=== PATIENT | male | born 1935 | race Caucasian/White ===

== ENCOUNTER → 2017-09-30 | Outpatient (CLI) | payer OTHER | LOC: M WUC 09:23 | DX: M25.511 Pain in right shoulder (principal) | CPT/HCPCS: 73030 ==

== ENCOUNTER → 2019-03-01 | Outpatient (CLI) | payer MEDICARE, OTHER ==
--- NOTE | 2019-03-01 10:16 | REP ---
LEFT HIP, TWO VIEWS: HISTORY: Pain. There is no acute fracture or dislocation. There is moderate narrowing of the joint space with associated sclerosis. IMPRESSION: Degenerative change as described above. Electronically Signed by Lan De La Rosa MD 03/01/2019 10:30 A
--- NOTE | 2019-03-01 10:17 | REP ---
AP PELVIS, TWO VIEWS: HISTORY: Pain. There is no acute fracture or dislocation. There is moderate narrowing of the joint spaces with associated sclerosis. A bone island is present in the right pubic bone. IMPRESSION: Degenerative change as described above. Electronically Signed by Lan De La Rosa MD 03/01/2019 10:30 A
== END ==
LOC: M WUC 09:05
PROVIDERS: ATTEND Physician Assistant
DX: M25.552 Pain in left hip (principal)